=== PATIENT | female | born 1945 | race Two or more races ===

== ENCOUNTER → 2017-07-08 | Outpatient (CLI) | payer OTHER | LOC: BMCIMAGING 08:55 | PROVIDERS: ATTEND Family Medicine | DX: Z12.31 Encounter for screening mammogram for malignant neoplasm of breast (principal) | CPT/HCPCS: G0202 ==

== ENCOUNTER → 2017-07-13 | Outpatient (CLI) | payer OTHER | LOC: CIMAGING 08:46 | PROVIDERS: ATTEND Surgery | DX: K76.0 Fatty (change of) liver, not elsewhere classified (principal) | CPT/HCPCS: 76705-PO ==

== ENCOUNTER → 2017-07-24 | Outpatient (CLI) | payer OTHER ==
[~2017-07-24] MED LIST: IOPAMIDOL (ISOVUE-300) 100 ML BTL ONE
== END ==
LOC: CIMAGING 10:10
PROVIDERS: ATTEND Family Medicine
DX: N26.9 Renal sclerosis, unspecified (principal); K44.9 Diaphragmatic hernia without obstruction or gangrene; K57.30 Diverticulosis of large intestine without perforation or abscess without bleeding
CPT/HCPCS: 74178; Q9967; 82565-PO

== ENCOUNTER 2017-11-02 15:35 | Emergency (ER) | payer OTHER ==
[2017-11-02] MEDS ORDERED: ONDANSETRON 4 MG/2 ML VIAL IVP ONE (15:42)
--- NOTE | 2017-11-02 15:43 | EDPHY ---
H & P Time Seen by Provider: 11/02/17 15:38 HPI/ROS: CHIEF COMPLAINT: Dizziness HISTORY OF PRESENT ILLNESS: Patient is brought in private vehicle by her daughter. Patient called the daughter at 1:00 p.m. Saying she had relatively rapid onset of dizziness, associated with severe nausea and vomiting. Difficulty walking per the daughter. They initially went to urgent care and were referred to here. Worse with movement. Better lying still with her eyes closed. She describes the dizziness as feeling off balance like she is on a boat. Not associated with lightheadedness or feeling that she will faint or pass out. REVIEW OF SYSTEMS: Eye: no change in vision or double vision ENT: No earache or hearing symptoms Cardiac: no chest pain or syncope Pulmonary: no cough or SOB Abdomen: HPI, no abdominal pain or diarrhea Musculoskeletal: no neck pain Skin: no rash Neuro: no headache Constitutional: no fever : no urinary symptoms A comprehensive 10 point review of systems is otherwise negative aside from elements mentioned in the history of present illness. PAST MEDICAL HISTORY: Includes diabetes, hypertension, hypercholesterolemia. Social history: Here with her daughter. General Appearance: Alert and conversant, cooperative. Speech fluent. Eyes: No scleral icterus. Pupils equal and reactive, extraocular motion intact with horizontal nystagmus looking to the left. ENT, Mouth: Normal mucous membranes. Tympanic membranes normal. Respiratory: Normal respiratory effort, breath sounds equal, lungs are clear to auscultation. Cardiovascular: Regular rate and rhythm. Gastrointestinal: Abdomen is soft and non tender. Neurological: Alert, face symmetric, normal motor and sensory in extremities. Speech fluent and normal [id number] bilaterally. Normal speech. Skin: Warm and dry, no rashes. Not diaphoretic. Musculoskeletal: No peripheral edema. Psychiatric: Not agitated. Emergency Department course/MDM: Plan for EKG, Zofran 4 mg IV, labs to include CBC chemistry and troponin. Oral meclizine. Symptoms most likely from acute severe peripheral vertigo. On my evaluation the patient says she is already starting to feel better. She does not look toxic. I think that cerebellar infarct or ischemia or bleed, or vertebral dissection or insufficiency are all less likely. 1640: Patient is smiling and feels a lot better, she is joking with me about how in the past she had vertigo; it got better after an accident at school when her nose was accidentally broken by a thrown football. She is able to ambulate in the emergency department without any symptoms, feels normal now. Not ataxic. Stable for discharge. Constitutional: Initial Vital Signs Temperature (C) 36.8 C 11/02/17 15:50 Heart Rate 83 11/02/17 15:50 Respiratory Rate 20 11/02/17 15:50 Blood Pressure 162/99 H 11/02/17 15:50 O2 Sat (%) 97 11/02/17 15:50 O2 Delivery Mode Room Air Allergies/Adverse Reactions: Penicillins Allergy (Verified 11/02/17 15:46) Home Medications: Medication Instructions Recorded Lisinopril 11/02/17 Lovastatin 11/02/17 Meclizine HCl [Meclizine HCl 25 mg 25 mg PO Q6 PRN #10 tab 11/02/17 (RX,OTC)] Metformin 1000 mg 11/02/17 Medical Decision Making - Diagnostics EKG Interpretation: 12-lead EKG interpreted by me; official reading is in trace master. My interpretation is sinus rhythm rate 69, borderline left axis, no ischemic changes. Differential Diagnosis: Differential diagnosis considered for dizziness including but not limited to peripheral and central causes of vertigo, orthostatic causes including dehydration, and blood loss. - Data Points Laboratory Results: Laboratory Results 11/02/17 16:05 11/02/17 16:05 11/02/17 11/02/17 16:05 16:05 WBC 7.15 10^3/uL 10^3/uL (3.80-9.50) RBC 4.32 10^6/uL 10^6/uL (4.18-5.33) Hgb 13.6 g/dL g/dL (12.6-16.3) Hct 39.2 % % (38.0-47.0) MCV 90.7 fL fL (81.5-99.8) MCH 31.5 pg pg (27.9-34.1) MCHC 34.7 g/dL g/dL (32.4-36.7) RDW 13.2 % % (11.5-15.2) Plt Count 276 10^3/uL 10^3/uL (150-400) MPV 9.0 fL fL (8.7-11.7) Neut % (Auto) 68.7 % % (39.3-74.2) Lymph % (Auto) 23.9 % % (15.0-45.0) [place] % (Auto) 6.0 % % (4.5-13.0) Eos % (Auto) 0.4 % L % (0.6-7.6) Baso % (Auto) 0.7 % % (0.3-1.7) Nucleat RBC Rel Count 0.0 % % (0.0-0.2) Absolute Neuts (auto) 4.91 10^3/uL 10^3/uL (1.70-6.50) Absolute Lymphs (auto) 1.71 10^3/uL 10^3/uL (1.00-3.00) Absolute Monos (auto) 0.43 10^3/uL 10^3/uL (0.30-0.80) Absolute Eos (auto) 0.03 10^3/uL 10^3/uL (0.03-0.40) Absolute Basos (auto) 0.05 10^3/uL 10^3/uL (0.02-0.10) Absolute Nucleated RBC 0.00 10^3/uL 10^3/uL (0-0.01) Immature Gran % 0.3 % % (0.0-1.1) Immature Gran # 0.02 10^3/uL 10^3/uL (0.00-0.10) Sodium 136 mEq/L mEq/L (135-145) Potassium 3.9 mEq/L mEq/L (3.5-5.2) Chloride 99 mEq/L mEq/L (97-110) Carbon Dioxide 26 mEq/l mEq/l (22-31) Anion Gap 11 mEq/L mEq/L (8-16) BUN 20 mg/dL mg/dL (7-23) Creatinine 0.6 mg/dL mg/dL (0.6-1.0) Estimated GFR > 60 Glucose 141 mg/dL H mg/dL (70-100) Calcium 10.1 mg/dL mg/dL (8.5-10.4) Troponin I < 0.012 ng/mL ng/mL (0.000-0.034) Medications Given: Discontinued Medications Sodium Chloride (Ns) 500 mls @ 0 mls/hr IV EDNOW ONE; Wide Open PRN Reason: Protocol Stop: 11/02/17 15:59 Last Admin: 11/02/17 16:10 Dose: 500 mls Meclizine HCl (Meclizine Hcl) 25 mg PO EDNOW ONE Stop: 11/02/17 15:56 Last Admin: 11/02/17 16:16 Dose: 25 mg Ondansetron HCl (Zofran) 4 mg IVP EDNOW ONE Stop: 11/02/17 15:43 Last Admin: 11/02/17 16:13 Dose: 4 mg Departure - Departure Disposition: Home, Routine, Self-Care Clinical Impression: Vertigo Condition: Good Instructions: Vertigo (ED) Referrals: Dolores Zapata MD [Primary Care Provider] - As per Instructions Prescriptions: Meclizine HCl [Meclizine HCl 25 mg (RX,OTC)] 25 mg PO Q6 PRN #10 tab PRN Reason: Dizziness
--- NOTE | 2017-11-02 15:50 | CPEKG ---
Heart Rate: 69 RR Interval: 870 P-R Interval: 168 QRSD Interval: 88 QT Interval: 436 QTC Interval: 467 P Dagmar: -52 QRS [place]: -19 T Wave [place]: -26 EKG Severity - ABNORMAL ECG - EKG Impression: SINUS OR ECTOPIC ATRIAL RHYTHM EKG Impression: BORDERLINE LEFT AXIS DEVIATION EKG Impression: NONSPECIFIC T ABNORMALITIES, INFERIOR LEADS Electronically Signed By: Mikael Saab 02-Nov-2017 15:50:39
[2017-11-02] MEDS ORDERED: MECLIZINE HCL 25 MG TAB PO ONE (15:55)
[2017-11-02] MEDS ORDERED: NS 500 ML IV ONE (15:58)
[2017-11-02 16:10] LABS: PLATELET COUNT 276 10^3/uL (150-400)
[2017-11-02 16:26] VITALS: TEMP 98.2
[2017-11-02 16:41] VITALS: O2SAT 93
[2017-11-02 17:02] VITALS: BP 124/73; PULSE 74; RESP 18
== END 2017-11-02 16:58 | disposition home or self-care (01) ==
LOC: CED 15:35
DX: R42 Dizziness and giddiness (principal); E11.9 Type 2 diabetes mellitus without complications; I10 Essential (primary) hypertension; E86.9 Volume depletion, unspecified; Z79.84 Long term (current) use of oral hypoglycemic drugs
CPT/HCPCS: 93005; 96361; 96374; 99284; J2405; 80048-PO; 84484-PO; 85025-PO

== ENCOUNTER → 2018-07-09 | Outpatient (CLI) | payer OTHER | LOC: BMCIMAGING 12:03 | PROVIDERS: ATTEND Family Medicine | DX: Z12.31 Encounter for screening mammogram for malignant neoplasm of breast (principal) ==